=== PATIENT | male | born 1975 | race American Indian/Alaskan Native ===

== ENCOUNTER 2019-05-08 07:12 | Emergency (ER) | payer BC ==
[2019-05-08 07:17] VITALS: BP 135/78
[2019-05-08] MEDS ORDERED: ALBUTEROL 2.5 MG/3 ML NEBU IH ONE (07:45)
[2019-05-08] MEDS ORDERED: predniSONE 20 MG TAB PO ONE (07:46)
[2019-05-08] MEDS ORDERED: AMOXICILLIN 500 MG CAP PO ONE (07:46)
--- NOTE | 2019-05-08 07:46 | Emergency Department Report ---
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 NO ASTHMA HX. NO FEVER. ENDORSES CHILLS. TOOK OTC MEDS AT HOME ED Review of Systems ROS: Stated complaint: COUGHING/CHEST COLD Other details as noted in HPI Comment: All other systems reviewed and negative ED Past Medical Hx - Past Medical History Previous Medical History?: Yes Hx Diabetes: Yes - Surgical History Past Surgical History?: No - Social History Smoking Status: Never Smoker Substance Use Type: None - Medications Home Medications: Home Medications Medication Instructions Recorded Confirmed Last Taken Type Amoxicillin [Trimox CAP] 500 mg PO BID #20 capsule 05/08/19 Unknown Rx Cetirizine HCl [ZyrTEC] 10 mg PO DAILY #30 capsule 05/08/19 Unknown Rx Fluticasone [Flonase] 1 spray NS QDAY #1 bottle 05/08/19 Unknown Rx predniSONE [Deltasone] 20 mg PO DAILY #5 tablet 05/08/19 Unknown Rx Minor Respiratory Exam - Exam General: Vital signs noted. No distress. Alert and acting appropriately. HEENT: Yes Pharyngeal Erythema, Yes Moist Mucous Membranes, Yes Rhinorrhea, No Pharyngeal Exudates, No Conjuctival Injection, No Frontal Tenderness, No Maxillary Tenderness Ear: Neither TM Bulge, Neither TM Erythema, Neither EAC Pain, Neither EAC Discharge Neck: Yes Supple, No Adenopathy Lungs: Yes Good Air Exchange, Yes Ronchi (CLEAR WITH COUGH), No Wheezes, No Stridor, No Cough, No Labored Respirations, No Retractions, No Use of Accessory Muscles, No Other Abnormal Lung Sounds Heart: Yes Regular, No Murmur Abdomen: Yes Normal Bowel Sounds, No Tenderness, No Peritoneal Signs Skin: No Rash, No Edema Neurologic: Alert and oriented, no deficits. Musculoskeletal: Unremarkable. ED Course Vital Signs 05/08/19 07:16 Temperature 98.4 F Pulse Rate 89 Respiratory 16 Rate Blood Pressure 135/78 O2 Sat by Pulse 98 Oximetry ED Medical Decision Making - Medical Decision Making NON ILL NON TOXIC APPEARING AMBULATORY TAKING PO SIMPLE URI WORKS AROUND KIDS MEDICATED IN ER DC HOME WITH PCP FOLLOW UP Vital Signs 05/08/19 07:16 Temperature 98.4 F Pulse Rate 89 Respiratory 16 Rate Blood Pressure 135/78 O2 Sat by Pulse 98 Oximetry - Differential Diagnosis SIMPLE URI Critical care attestation.: If time is entered above; I have spent that time in minutes in the direct care of this critically ill patient, excluding procedure time. ED Disposition Clinical Impression: Bronchitis, URTI (acute upper respiratory infection) Disposition: DC-01 TO HOME OR SELFCARE Is pt being admited?: No Does the pt Need Aspirin: No Condition: Stable Instructions: Acute Bronchitis (ED) Additional Instructions: FOLLOW UP WITH PCP MEDS ORDERED TODAY Prescriptions: predniSONE [Deltasone] 20 mg PO DAILY #5 tablet Fluticasone [Flonase] 1 spray NS QDAY #1 bottle Amoxicillin [Trimox CAP] 500 mg PO BID #20 capsule Cetirizine HCl [ZyrTEC] 10 mg PO DAILY #30 capsule Referrals: [facility] [Outside] - 3-5 Days Forms: Work/School Release Form(ED) Time of Disposition: 07:57
== END 2019-05-08 09:06 | disposition home or self-care (01) ==
LOC: ED 07:12
DX: J40 Bronchitis, not specified as acute or chronic (principal); J06.9 Acute upper respiratory infection, unspecified; E11.9 Type 2 diabetes mellitus without complications
CPT/HCPCS: 94640; 99283; J7512